=== PATIENT | female | born 1970 | race Caucasian/White ===

== ENCOUNTER → 2025-05-23 | Outpatient (CLI) | payer OTHER, SELFPAY ==
--- NOTE | 2025-05-23 15:17 | BI_ITS ---
EXAM: SCRN MAMM (CAD)W/ANNA MARIE BILAT DATE: 05/23/2025 CLINICAL HISTORY: F, Age 54 y/o , SCREENING Routine screening TECHNIQUE: Procedure Code: [id number] Modality: MG Procedure: SCRN MAMM (CAD)W/ANNA MARIE BILAT COMPARISON: Prior exam(s) dated 06/04/2015. FINDINGS: TISSUE DENSITY: There are scattered areas of fibroglandular density. Bilateral Breast Mammographic Findings: No significant masses, calcifications or other abnormalities are identified. Stable scattered punctate calcifications. No interval change BI/SCRN MAMM (CAD)W/ANNA MARIE BILAT IMPRESSION: Stable screening mammogram OVERALL FINAL ASSESSMENT BI-RADS 2: BENIGN RECOMMENDATION: Routine annual follow-up in 1 Year Additional Recommendation none A letter with findings and recommendations will be mailed to the patient. Reading Location: [id number]
== END | disposition home or self-care (01) ==
LOC: OPBI 15:16
DX: Z12.31 Encounter for screening mammogram for malignant neoplasm of breast (principal)
CPT/HCPCS: 77063; 77067